=== PATIENT | male | born 1995 | race Caucasian/White ===

== ENCOUNTER 2019-01-18 07:55 | Outpatient (CLI) | payer OTHER ==
--- NOTE | 2019-01-18 09:20 | MRI Report ---
Reason: RT FINGER PAIN Procedure Date: 01/18/2019 Accession Number: [id number] / [id number] Procedure: MRI - Finger(s) RT W/O CPT Code: 57726 Final Report FULL RESULT: EXAM: RIGHT HAND FIFTH DIGIT MR WITHOUT CONTRAST EXAM DATE: 01/18/2019 08:49 AM. CLINICAL HISTORY: Right finger pain. COMPARISON: None. TECHNIQUE: Multiplanar, multisequence T1-weighted and fluid-sensitive sequences of the finger without contrast. Other: None. FINDINGS: Bones: No fractures or subluxations. No marrow edema. No bone lesions. Cartilage: The articular cartilage is unremarkable. Ligaments: The radial and ulnar collateral ligaments are intact. Tendons: The flexor and extensor tendons are unremarkable. The visualized pulleys are intact. Musculature: No edema or fatty atrophy. Other: No joint effusions or capsular rupture. Mild subcutaneous soft tissue edema at the proximal and mid fifth digit. IMPRESSION: 1. Mild subcutaneous soft tissue edema at the proximal and mid fifth digit. Nonspecific. Simple edema versus cellulitis. 2. Hand MRI otherwise within normal limits. [facility]
== END 2019-01-18 07:56 | disposition home or self-care (01) ==
LOC: DI 07:55
PROVIDERS: ATTEND Family Medicine
DX: M79.644 Pain in right finger(s) (principal); R60.0 Localized edema

== ENCOUNTER 2019-02-04 06:39 | Emergency (ER) | payer OTHER ==
[2019-02-04 06:49] VITALS: BP 140/94
--- NOTE | 2019-02-04 07:05 | ED Physician Documentation ---
PD HPI GI BLEED - Stated complaint Stated Complaint: R SIDE PX/BLOODY STOOL - Chief complaint Chief Complaint: Back Pain - History obtained from History obtained from: Patient - History of Present Illness Timing - onset: How many days ago (3 days of back pain, right side mid abd to right flank, worse with movement and cough/laugh. Awoke with pain and not aware of injury. Was doing regular workout and lifting/activity the day prior. Also noted some red blood when wiping after firm BM yesterday and again some today. No melena.) Timing - duration: Days (3 days of back pain, not improved with Ibuprofen.) Timing - details: Gradual onset, Still present, Waxing and waning Associated symptoms: BRBPR (with wiping after BM that was firm. Not constipated per se.). No: Diarrhea, Abdominal pain (but the flank pain to right lateral side.) Contributing factors: No: Bad food, Travel, Recent antibiotics Improved by: Laying still Worsened by: Moving, Position. No: Eating, Breathing, Palpation Similar symptoms before: Has not had sx before Recently seen: Not recently seen Review of Systems Constitutional: denies: Fever, Chills, Myalgias Nose: denies: Rhinorrhea / runny nose, Congestion Throat: denies: Sore throat Cardiac: denies: Chest pain / pressure Respiratory: denies: Dyspnea, Cough GI: reports: Abdominal Pain (right flank side), Constipation, Bloody / black stool. denies: Abdominal Swelling, Nausea, Vomiting, Diarrhea : denies: Dysuria, Frequency, Hematuria Skin: denies: Rash, Lesions Neurologic: denies: Generalized weakness, Focal weakness, Numbness PD PAST MEDICAL HISTORY - Past Medical History Past Medical History: No - Past Surgical History Past Surgical History: No - Present Medications Home Medications: Ambulatory Orders Medication Instructions Recorded Confirmed Docusate Sodium 100 mg PO DAILY #30 capsule 02/04/19 Hydrocodone/Acetaminophen [Elton 1 each PO Q6H PRN #20 tablet 02/04/19 5-325 Tablet] Hydrocortisone Acetate [Anucort-Hc] 25 mg RC DAILY #5 supp.rect 02/04/19 Naproxen 500 mg PO BID #20 tablet 02/04/19 dexAMETHasone [Decadron] 4 mg PO DAILY #5 tablet 02/04/19 - Allergies Allergies/Adverse Reactions: Allergies Allergy/AdvReac Type Severity Reaction Status Date / Time No Known Drug Allergies Allergy Verified 02/04/19 06:49 - Social History Does the pt smoke?: No Smoking Status: Never smoker Does the pt drink ETOH?: Yes ETOH Use: Beer, Liquor Does the pt have substance abuse?: No - Immunizations Immunizations are current?: Yes - POLST Patient has POLST: No PD ED PE NORMAL - Vitals Vital signs reviewed: Yes - General General: Alert and oriented X 3, No acute distress, Well developed/nourished - HEENT HEENT: Pharynx benign - Neck Neck: Supple, no meningeal sign, No adenopathy - Cardiac Cardiac: RRR, No murmur - Respiratory Respiratory: Clear bilaterally - Abdomen Abdomen: Soft, Non tender - Male Male : Deferred - Rectal Rectal: Other (external normal. Digital exam revealing small soft area of tenderness c/w hemorrhoid. No bleeding in vault currently. ) - Back Back: No spinal TTP, Other (some right CVA tenderness and also at right lateral lumbar muscles/soft tissue. ) - Derm Derm: Normal color, Warm and dry - Extremities Extremities: Normal ROM s pain - Neuro Neuro: Alert and oriented X 3, No motor deficit, Normal speech Results - Vitals Vitals: Vital Signs - 24 hr 02/04/19 06:44 Temperature 36.9 C Heart Rate 66 Respiratory 18 Rate Blood Pressure 140/94 H O2 Saturation 99 Oxygen O2 Source Room air - Labs Labs: Laboratory Tests 02/04/19 07:24 Urine Color YELLOW Urine Clarity CLEAR Urine pH 6.0 Ur Specific [place] >=1.030 H Urine Protein NEGATIVE Urine Glucose (UA) NEGATIVE Urine Ketones NEGATIVE Urine Occult Blood NEGATIVE Urine Nitrite NEGATIVE Urine Bilirubin NEGATIVE Urine Urobilinogen 0.2 (NORMAL) Ur Leukocyte Esterase NEGATIVE Ur Microscopic Review NOT INDICATED Urine Culture Comments NOT INDICATED - Rads (name of study) abd CT Radiology: Prelim report reviewed (no kidney stones nor acute abnormality to account for the flank pain), See rad report PD MEDICAL DECISION MAKING - ED course Complexity details: reviewed results (no acute process seen. ), considered differential (flank pain seems likely muscular as is positional and worse with abrupt movement like cough and laugh. Consider kidney stone or right intestinal cause as well, so will get CT. The rectal bleeding seems hemorrhoidal. ), d/w patient Departure - Departure Disposition: 01 Home, Self Care Clinical Impression: Rectal bleeding, Internal hemorrhoid, bleeding, Acute right flank pain Condition: Stable Record reviewed to determine appropriate education?: Yes Instructions: ED Flank Pain Uncertain Cause, ED Hemorrhoids Follow-Up: NILA LONDON MD [Primary Care Provider] - Prescriptions: dexAMETHasone [Decadron] 4 mg PO DAILY #5 tablet Docusate Sodium 100 mg PO DAILY #30 capsule Hydrocodone/Acetaminophen [Elton 5-325 Tablet] 1 each PO Q6H PRN #20 tablet PRN Reason: Pain Hydrocortisone Acetate [Anucort-Hc] 25 mg RC DAILY #5 supp.rect Naproxen 500 mg PO BID #20 tablet Comments: Your CT scan did not show an obvious cause of the pain. There is a little bit of fluid around the lung in the lower corner that may suggest some inflammation of the lung surface called pleurisy. There are no kidney stones or other abnormality seen. The organs in the upper abdomen there looked normal (liver spleen and gallbladder). I would have you try some anti-inflammatories of naproxen and Decadron as directed. To it add Tylenol or hydrocodone as needed for pain. I would anticip ate improvement over the next few days and resolution by a few days to week. Regarding the blood in the stool, it seems to be likely an internal hemorrhoid. Use a daily stool softener of docusate the next couple of weeks. If you continue with some bleeding with bowel movements, then also use hemorrhoidal suppository daily for a few days to reduce inflammation of the hemorrhoid. Recheck if continued problem with either condition. Discharge Date/Time: 02/04/19 09:10
[2019-02-04] MEDS ORDERED: KETOROLAC 60 MG/2 ML VIAL IM STA (07:23)
[2019-02-04 07:44] LABS: BILIRUBIN,URINE NEGATIVE (NEGATIVE); CLARITY,URINE CLEAR (CLEAR); GLUCOSE, URINE (UA) NEGATIVE (NEGATIVE); KETONES,URINE (UA) NEGATIVE (NEGATIVE); LEUKOCYTE ESTERASE, URINE NEGATIVE (NEGATIVE); NITRITE,URINE NEGATIVE (NEGATIVE); OCCULT BLOOD,URINE NEGATIVE (NEGATIVE); PROTEIN,URINE NEGATIVE (NEGATIVE); UROBILINOGEN,URINE 0.2 (NORMAL) E.U./dL (NORMAL)
--- NOTE | 2019-02-04 08:08 | CT Report ---
Reason: right flank pain for 3 days Procedure Date: 02/04/2019 Accession Number: [id number] / [id number] Procedure: CT - Abdomen/Pelvis WO CPT Code: Final Report FULL RESULT: EXAM: CT ABDOMEN AND PELVIS (CT KUB) WITHOUT CONTRAST EXAM DATE: 02/04/2019 07:40 AM. CLINICAL HISTORY: Right flank pain for 3 days in a 23-year-old male. COMPARISONS: None. TECHNIQUE: Emergent axial helical CT imaging was performed through the abdomen and pelvis without IV contrast. Reconstructions: Coronal and sagittal. In accordance with CT protocol optimization, one or more of the following dose reduction techniques were utilized for this exam: automated exposure control, adjustment of mA and/or KV based on patient size, or use of iterative reconstructive technique. FINDINGS: Lung Bases: Minimal right pleural effusion. Visualized lower chest otherwise unremarkable. Right Kidney/Ureter: Normal. No stones, hydronephrosis, or hydroureter. No perinephric fat stranding. Left Kidney/Ureter: Normal. No stones, hydronephrosis, or hydroureter. No perinephric fat stranding. Other Solid Organs: Noncontrast images of the solid organs are grossly unremarkable. Gallbladder/Bile Ducts: No gallstones, wall thickening or dilated bile ducts. Peritoneal Cavity: No free fluid, free air or jeaneth adenopathy. Bowel is grossly unremarkable. Normal-appearing appendix. No inflammatory change. Pelvic Organs: Empty urinary bladder. No gross evidence of bladder stones or wall thickening. Noncontrast images of the visualized pelvic organs are unremarkable. Vasculature: Unremarkable. Other: No free fluid or adenopathy through the abdomen or pelvis. IMPRESSION: Minimal right pleural effusion. Visualized lower chest otherwise unremarkable. Normal noncontrast abdomen and pelvic CT. Normal kidneys, urinary bladder and appendix. No findings suggesting right-sided flank pain. [facility]
[2019-02-04] MEDS ORDERED: ACETAMINOPHEN 325 MG TABLET PO STA (08:51)
[2019-02-04] MEDS ORDERED: CHERRY SYRUP 10 ML UDC PO ONE (08:51)
[2019-02-04] MEDS ORDERED: DEXAMETHASONE 10 MG/ML VIAL PO STA (08:51)
== END 2019-02-04 09:10 | disposition home or self-care (01) ==
LOC: ED 06:39
DX: R10.9 Unspecified abdominal pain (principal); K64.8 Other hemorrhoids; J90 Pleural effusion, not elsewhere classified
CPT/HCPCS: 74176; 81003; 96372; 99284; A9270; 81001; 87086